=== PATIENT | male | born 1975 | race Caucasian/White ===

== ENCOUNTER 2017-05-03 13:01 | Emergency (ER) | payer SELFPAY ==
[~2017-05-03] VITALS: Ht 198.1 cm; Wt 104.3 kg
[2017-05-03 13:20] VITALS: BP 109/61
[2017-05-03] MEDS ORDERED: IBUPROFEN 600 MG TABLET PO ONE ×2 (13:54→14:00)
== END 2017-05-03 16:29 | disposition home or self-care (01) ==
LOC: ER 13:04
DX: S97.82XA Crushing injury of left foot, initial encounter (principal); S90.412A Abrasion, left great toe, initial encounter; F41.9 Anxiety disorder, unspecified; Z72.0 Tobacco use; W23.0XXA Caught, crushed, jammed, or pinched between moving objects, initial encounter; Y93.89 Activity, other specified; Y92.89 Other specified places as the place of occurrence of the external cause; Y99.8 Other external cause status
CPT/HCPCS: 73630; 99284; 99406; A4606; A6402; Z7610